=== PATIENT | female | born 1945 | race Two or more races ===

== ENCOUNTER → 2017-07-03 | Emergency (ER) | payer OTHER ==
[~2017-07-03] VITALS: Ht 152.4 cm; Wt 67.1 kg
[~2017-07-03] MED LIST: ATENOLOL25 MG PO; CIPRO500 MG PO; ENALAPRIL MALE2.5 MG PO; FLAGYL500MG PO; LIPITOR80 MG; LOTREL 5-10 MG1 CAP; PLAVIX300 MG; SIMVASTATIN40 MG; TOPROL XL25 M1; VITAMIN D-32000 UNIT; ZETIA10 MG
== END | disposition home or self-care (01) ==
LOC: ER 21:59
DX: J11.1 Influenza due to unidentified influenza virus with other respiratory manifestations (principal); J06.9 Acute upper respiratory infection, unspecified